=== PATIENT | male | born 1990 | race Caucasian/White ===

== ENCOUNTER 2017-08-14 19:32 | Emergency (ER) | payer MEDICAID, SELFPAY ==
[~2017-08-14] VITALS: Ht 182.9 cm; Wt 77.3 kg
[2017-08-14] MEDS ORDERED: diphenhydrAMINE INJ 50MG/ML VIAL (J1200) IV STA (20:29)
[2017-08-14] MEDS ORDERED: METOCLOPRAMIDE INJ 10MG/2ML VIAL (J2765) IV ONE (20:30)
[2017-08-14] MEDS ORDERED: NS 1,000 ML IV ONE (20:30)
[2017-08-14] MEDS ORDERED: KETOROLAC 30 MG/ML VIAL (J1885) IV ONE (20:30)
--- NOTE | 2017-08-14 21:00 | REPUSA ---
CT of the head Clinical history: Headache. Technique: Multiple axial CT images were obtained through the head without administration of contrast . Findings: The ventricles and sulci are symmetric bilaterally. There is no evidence of acute hemorrhag e or infarct. There is no midline shift, mass effect, or extra-axial fluid collection. The osseous st ructures are unremarkable. The visualized paranasal sinuses and mastoid air cells are clear. Impression: Negative study.
[2017-08-14 21:20] VITALS: BP 151/70
== END 2017-08-14 21:38 | disposition home or self-care (01) ==
LOC: M ED 19:32
DX: G43.909 Migraine, unspecified, not intractable, without status migrainosus (principal); F17.210 Nicotine dependence, cigarettes, uncomplicated
CPT/HCPCS: 70450; 96374; 96375; 99284; J1200; J1885; J2765

== ENCOUNTER → 2018-02-23 | Outpatient (REF) | LOC: M LAB 16:34 | DX: Z02.89 Encounter for other administrative examinations (principal) ==